=== PATIENT | female | born 1960 | race Caucasian/White ===

== ENCOUNTER → 2016-08-13 | Outpatient (CLI) | payer OTHER ==
[~2016-08-13] MED LIST: LORTAB 5-325 M1 EACH PO; MOTRIN IB200 MG PO; OMEPRAZOLE40 MG PO; SYNTHROID25 MCG; SYNTHROID25 MCG PO; TYLENOL EXTRA500 MG PO; ZANTAC300 MG PO
== END | disposition home or self-care (01) ==
LOC: RAD.S 15:19
DX: Z12.31 Encounter for screening mammogram for malignant neoplasm of breast (principal)